=== PATIENT | male | born 1980 | race Caucasian/White ===

== ENCOUNTER 2020-01-16 10:49 | Observation (INO) ==
[~2020-01-16 10:49] MED LIST: Buffered Lidocaine 1% SYRIN 1 ml INTRADERM ONE; Lactated Ringers 1000 ml BAG 1,000 ML IV SCH
[2020-01-16] MEDS ORDERED: ceFAZolin 2 GM PREMIX 2 GM/50 ML BAG ONE (11:06)
[2020-01-16] MEDS ORDERED: Buffered Lidocaine 1% SYRIN 1 ml INTRADERM ONE (11:06)
[2020-01-16] MEDS ORDERED: fentaNYL 250 mcg/5 ml 50 MCG/ML 5 ml VIAL (250 MCG) ONE (11:23)
[2020-01-16] MEDS ORDERED: Dexamethasone IV 4 MG/ML VIAL 1 ml VIAL ONE (11:23)
[2020-01-16] MEDS ORDERED: Ondansetron 4 mg VIAL 2 MG/ML 2 ml VIAL ONE (11:23)
[2020-01-16] MEDS ORDERED: Rocuronium 50 mg VIAL 10 mg/ml 5 ml VIAL (50 mg) ONE ×2 (11:23→18:12)
[2020-01-16] MEDS ORDERED: Propofol 10 MG/ML 20 ML BTL ONE (11:23)
[2020-01-16] MEDS ORDERED: Lidocaine 2% PF 5 ML VIAL ONE (11:23)
[2020-01-16] MEDS ORDERED: Ketamine HCL 50 mg/ml 10 ml VIAL (500 MG) ONE (11:24)
[2020-01-16] MEDS ORDERED: Midazolam 2 mg/2 ml VIAL 1 mg/ml 2 ml VIAL (2 mg) ONE (11:24)
[2020-01-16] MEDS ORDERED: Artificial Tear OPHTH.OINT 3.5 GM ONE (15:34)
[2020-01-16] MEDS ORDERED: oxyCODONE/Acetamin 5/325 mg TAB PO PRN (15:57)
[2020-01-16] MEDS ORDERED: diPHENhydraMINE IV 50 MG/ML 1 ml VIAL (BENADRYL) IV PRN (15:57)
[2020-01-16] MEDS ORDERED: Ondansetron 4 mg VIAL 2 MG/ML 2 ml VIAL IV PRN ×2 (15:57→20:31)
[2020-01-16] MEDS ORDERED: Morphine 4 MG/ML VIAL (1 ml) IV PRN (15:57)
[2020-01-16] MEDS ORDERED: Bacitracin INJECTION 50,000 UNITS ONE (17:39)
[2020-01-16] MEDS ORDERED: HYDROcodone/ACETAMIN 5/325 mg TAB PO PRN (20:31)
[2020-01-16] MEDS ORDERED: Magnesium Hydroxide LIQ 30 ML UDC PO PRN (20:31)
[2020-01-17] MEDS: HYDROcodone/ACETAMIN 5/325 mg TAB PO PRN ×2 (04:02→08:42)
[2020-01-17 08:02] VITALS: BP 101/54
== END 2020-01-17 09:35 | disposition home or self-care (01) ==
LOC: OR 10:49 → SSU 10:49
PROVIDERS: ADMIT Neurological Surgery; ATTEND Neurological Surgery